=== PATIENT | female | born 1930 | race Caucasian/White ===

== ENCOUNTER 2016-07-21 14:59 | Emergency (ER) | payer MEDICARE ==
[2016-07-21] MEDS ORDERED: Ondansetron HCl/PF 4 MG/2 ML Vial ONE (15:30)
[2016-07-21 15:48] LABS: ALT (SGPT) 24 U/L (0-55); AST (SGOT) 33 U/L (5-34); Alkaline Phosphatase 58 U/L (40-150); Anion Gap 18 mmol/L (10-20); BUN (Urea Nitrogen) 25 mg/dL (9.8-20.1); Bilirubin, Total 0.6 mg/dL (0.2-1.2); Calc. Creatinine Clearance 0 mL/min (70-130); Calcium 10.2 mg/dL (7.8-10.44); Carbon Dioxide 25 mmol/L (23-31); Chloride 97 mmol/L (98-107); Estimated GFR-MDRD 29; Globulin 2.9 g/dL (2.4-3.5); Lipase 75 U/L (8-78); Protein, Total 7.4 g/dL (5.8-8.1)
[2016-07-21 15:54] LABS: Hematocrit 40.4 % (36.0-47.0); Mean Platelet Volume 7.4 fL (7.4-10.4); Neutrophil 49 % (42-75); Red Blood Cell (RBC) Count 4.37 mill/uL (4.20-5.40); Troponin I 0.014 ng/mL (< 0.028); White Blood Cell (WBC) Count 6.7 thou/uL (4.8-10.8)
[2016-07-21 16:49] LABS: Blood, Urine Negative (Negative); Glucose, Urine (Dipstick) 100 mg/dL (Negative); Ketone, Urine 15 mg/dL (Negative); Nitrite Negative (Negative); Protein, Urine (Dipstick) 100 mg/dL (Neg-Trace)
[2016-07-21 16:53] LABS: Bilirubin Negative (Negative)
[2016-07-21 16:58] LABS: Bacteria/HPF Rare-Few HPF (None Seen); Hyaline Casts/LPF 0-3 HYALINE CAST LPF (0-3 Hyaline); Oval Fat Bodies/HPF None Seen HPF (None Seen); RBC/HPF None Seen HPF (0-3); Renal Epithelial None Seen HPF (0-3); Sperm/HPF None Seen HPF (None Seen); Squamous Epithelial 0-3 HPF (0-3); Transitional Epithelial NONE SEEN HPF (0-3); Trichomonas/HPF None Seen HPF (None Seen); WBC/HPF 0-3 HPF (0-3); Yeast-All Forms None Seen HPF (None Seen)
== END 2016-07-21 17:38 | disposition home or self-care (01) ==
LOC: BURERS 14:59
DX: R11.2 Nausea with vomiting, unspecified (principal); E03.9 Hypothyroidism, unspecified; E78.2 Mixed hyperlipidemia; I10 Essential (primary) hypertension; F32.9 Major depressive disorder, single episode, unspecified; F41.9 Anxiety disorder, unspecified; Z79.2 Long term (current) use of antibiotics; Z79.899 Other long term (current) drug therapy
CPT/HCPCS: 80053; 81003; 81015; 82553; 83690; 84484; 85025; 96361; 96374; J2405

== ENCOUNTER 2018-05-20 12:19 | Emergency (ER) | payer MEDICARE ==
--- NOTE | 2018-05-20 15:18 | CT ---
CT OF THE BRAIN WITHOUT CONTRAST: Date: 05/20/18 Comparison is made with the 07/05/06 study. FINDINGS: The ventricles are normal in size for age and atrophy. 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 There are a few patchy areas of hypolucency that are similar to the prior s can. No intracranial bleeding or extra-axial hematoma was seen. There is no sign of mass, edema, or a cute stroke. The skull appears intact. The visible sinuses and mastoid air cells are clear. IMPRESSION: No acute intracranial findings. POS: HOME
== END 2018-05-20 13:14 | disposition home or self-care (01) ==
LOC: BURERS 12:19
DX: S00.03XA Contusion of scalp, initial encounter (principal); Z79.899 Other long term (current) drug therapy; W17.89XA Other fall from one level to another, initial encounter
CPT/HCPCS: 70450

== ENCOUNTER 2019-03-06 16:50 | Emergency (ER) | payer MEDICARE ==
[2019-03-06] MEDS ORDERED: Cyclobenzaprine 10 MG TAB ONE (17:31)
[2019-03-06] MEDS ORDERED: Ibuprofen 200 MG TAB ONE (17:31)
== END 2019-03-06 17:45 | disposition home or self-care (01) ==
LOC: BURERS 16:50
DX: M62.838 Other muscle spasm (principal); M19.90 Unspecified osteoarthritis, unspecified site; I10 Essential (primary) hypertension; E03.9 Hypothyroidism, unspecified; F32.9 Major depressive disorder, single episode, unspecified; Z79.899 Other long term (current) drug therapy
CPT/HCPCS: 99283